=== PATIENT | female | born 1985 | race Caucasian/White ===

== ENCOUNTER 2020-03-31 07:26 | Inpatient (IN) | payer OTHER ==
[~2020-03-31] VITALS: Ht 172.7 cm; Wt 94.3 kg
[2020-04-05] MEDS ORDERED: EPHEDRINE SULFATE 50 MG/ML AMPULE IVP PRN (18:30)
[2020-04-05] MEDS ORDERED: NALOXONE HCL 0.4 MG/1 ML ML IV PRN (18:30)
[2020-04-05] MEDS ORDERED: ROPIVACAINE 0.2% 100ML VIAL 100 ML EP SCH (18:30)
[2020-04-05] MEDS ORDERED: LACTATED RINGERS 1000ML 1,000 ML IV PRN (18:30)
[2020-04-05] MEDS ORDERED: MISOPROSTOL 100 MCG TABLET VG SCH (18:30)
[2020-04-05] MEDS ORDERED: LACTATED RINGERS 500 ML 500 ML IV PRN (18:30)
[2020-04-05] MEDS ORDERED: BUTORPHANOL TARTRATE 2 MG/ML IVP PRN (18:30)
[2020-04-05 19:32] LABS: HEMATOCRIT 34.3 % (36-48); MEAN CORPUSCULAR HGB CONC 32.4 g/dL (32.0-36.0); MEAN CORPUSCULAR VOLUME 86.6 fL (79-99); RED BLOOD CELL COUNT(AUTO) 3.96 MIL/uL (4.00-5.50); RED CELL DISTRIBUTION WIDTH 15.5 % (11.0-15.5); WHITE BLOOD COUNT (AUTO) 12.5 K/uL (4.8-10.8)
[2020-04-05 19:45] LABS: APPEARANCE,URINE Clear (CLEAR); BILIRUBIN,URINE Negative (NEGATIVE); COLOR,URINE Yellow (YELLOW); GLUCOSE, URINE (UA) Negative (NEGATIVE); KETONES,URINE Negative (NEGATIVE); LEUKOCYTE ESTERASE ,URINE Negative (NEGATIVE); NITRATE,URINE Negative (NEGATIVE); OCCULT BLOOD,URINE Negative (NEGATIVE); PROTEIN,URINE Negative (NEGATIVE); UROBILINOGEN,URINE 0.2 mg/dL (0.2-1.0)
[2020-04-06 05:48] VITALS: BP 106/58
[2020-04-06] MEDS ORDERED: OXYTOCIN-LR 20 UNITS/1000 ML 1,000 ML IV SCH (07:00)
[2020-04-06] MEDS ORDERED: METHYLERGONOVINE MALEATE 0.2 MG/1 ML ML ONE (12:12)
[2020-04-06] MEDS ORDERED: MISOPROSTOL 200 MCG TABLET ONE (12:31)
[2020-04-06] MEDS ORDERED: MEASLES/MUMPS/RUBELLA VACCINE, LIVE 0.5 ML/VIAL SQ PRN (13:00)
[2020-04-06] MEDS ORDERED: DIPH,PERTUSS(ACELL),TET VAC/PF 0.5 ML VIAL IM PRN (13:00)
[2020-04-06] MEDS ORDERED: LANOLIN 30GM OINTMENT TP PRN (13:00)
[2020-04-06] MEDS: IBUPROFEN 800 MG TAB PO SCH ×2 (13:00→18:18)
[2020-04-06] MEDS ORDERED: BENZOCAINE/LANOLIN/ALOE VERA 60 ML AEROSOL TP PRN (13:00)
[2020-04-06] MEDS ORDERED: ACETAMINOPHEN WITH CODEINE 1 TAB TAB PO PRN (13:00)
[2020-04-06] MEDS ORDERED: WITCH HAZEL 1 PAD TP PRN (13:00)
[2020-04-06 14:59] VITALS: BP 126/80
[2020-04-06] MEDS: ACETAMINOPHEN 325 MG TAB PO PRN (15:11)
[2020-04-06] MEDS ORDERED: ASPI-1005 PO (15:22)
[2020-04-06] MEDS ORDERED: PNV1TABL17 PO (15:22)
[2020-04-06 19:29] VITALS: BP 126/83
[2020-04-06] MEDS: DOCUSATE SODIUM 100 MG CAP PO SCH (20:47)
[2020-04-06 23:22] VITALS: BP 134/83
[2020-04-07] MEDS: IBUPROFEN 800 MG TAB PO SCH ×2 (01:22→06:51)
[2020-04-07 03:39] VITALS: BP 111/69
[2020-04-07 07:31] VITALS: BP 111/64
[2020-04-07 09:13] LABS: HEPATITIS Bs ANTIGEN SCREEN P Negative (Negative)
[2020-04-07] MEDS: DOCUSATE SODIUM 100 MG CAP PO SCH (09:38)
[2020-04-07] MEDS: ACETAMINOPHEN 325 MG TAB PO PRN (09:40)
[2020-04-07 11:42] VITALS: BP 110/64
== END 2020-04-07 12:50 | disposition home or self-care (01) | DRG 806 ==
LOC: PREOBSVTOIN 18:16 → LDH 04-05 18:21 → WSH 04-06 15:02
PROVIDERS: ADMIT Obstetrics & Gynecology; ATTEND Obstetrics & Gynecology
PROC: 10E0XZZ Delivery of Products of Conception, External Approach (ICD-10-PCS; principal; 2020-04-06)
PROC: 3E0P7VZ Introduction of Hormone into Female Reproductive, Via Natural or Artificial Opening (ICD-10-PCS; 2020-04-06)
PROC: 0KQM0ZZ Repair Perineum Muscle, Open Approach (ICD-10-PCS; 2020-04-06)
PROC: 10907ZC Drainage of Amniotic Fluid, Therapeutic from Products of Conception, Via Natural or Artificial Opening (ICD-10-PCS; 2020-04-06)
PROC: 3E0R3BZ Introduction of Anesthetic Agent into Spinal Canal, Percutaneous Approach (ICD-10-PCS; 2020-04-06)
PROC: 00HU33Z Insertion of Infusion Device into Spinal Canal, Percutaneous Approach (ICD-10-PCS; 2020-04-06)
PROC: 3E0234Z Introduction of Serum, Toxoid and Vaccine into Muscle, Percutaneous Approach (ICD-10-PCS; 2020-04-06)
PROC: 3E0134Z Introduction of Serum, Toxoid and Vaccine into Subcutaneous Tissue, Percutaneous Approach (ICD-10-PCS; 2020-04-06)
DX: O69.81X0 Labor and delivery complicated by cord around neck, without compression, not applicable or unspecified (principal); O70.20 Third degree perineal laceration during delivery, unspecified; Z37.0 Single live birth; Z3A.40 40 weeks gestation of pregnancy; O62.2 Other uterine inertia; Z23 Encounter for immunization
CPT/HCPCS: 36415; 81003; 85027; 86592; 86850; 86900; 86901; 87340; A4314; A4606; G0378; J2210; J2590; J2795; J7120